=== PATIENT | female | born 1965 | race Caucasian/White ===

== ENCOUNTER 2019-01-27 10:35 | Emergency (ER) | payer OTHER | END 2019-01-27 12:53 | disposition home or self-care (01) | LOC: E/R 10:35 | DX: M54.9 Dorsalgia, unspecified (principal); M54.2 Cervicalgia; R94.02 Abnormal brain scan; Z76.5 Malingerer [conscious simulation] | CPT/HCPCS: 70450; 72125; 73030-RT; 73110-LT; 73110-RT; 99284-25 ==